=== PATIENT | female | born 1985 | race Caucasian/White ===

== ENCOUNTER 2024-03-26 02:41 | Emergency (ER) | payer BC ==
[2024-03-26] MEDS ORDERED: NA CHLORIDE 0.9% 1,000 ML ONE (03:45)
[2024-03-26 03:56] LABS: Absolute Eosinophils 0.1 K/uL (0-0.5); Absolute Lymphocytes (CBC) 1.6 K/uL (0.7-4.9); Absolute Monocytes 0.5 K/uL (0.1-1.3); Absolute Neutrophil 4.5 K/uL (1.8-8.0); Basophils % 0.6 % (0-1.3); Eosinophils % 1.6 % (0-4.4); Hematocrit 37.4 % (36.0-45.0); Hemoglobin 12.7 g/dL (12.0-15.0); Lymphocytes % 23.9 % (15.3-44.8); MCH 30.4 pg (27.0-35.0); MCHC 34.1 g/dL (32.0-36.0); MPV 9.2 fL (7.6-11.3); Monocytes % 7.5 % (3.3-12.3); Neutrophils % 66.4 % (41.7-73.7); Nucleated Red Blood Cells % 0.3 % (0-0); Platelets 221 thou/uL (152-406); RBC Red Blood Cell Count 4.19 M/uL (3.86-4.86); Red Cell Distribution Width 12.9 % (12.1-15.2)
[2024-03-26 04:31] LABS: ALT/SGPT 21 U/L (13-56); AST/SGOT 22 U/L (15-37); Albumin 3.2 g/dL (3.4-5.0); Albumin/Globulin Ratio 1.1 (1.1-1.8); Alkaline Phosphatase 37 U/L (45-117); Anion Gap 14.9 mEq/L (5.0-15.0); BUN Blood Urea Nitrogen 13 mg/dL (7-18); Bicarbonate 21 mEq/L (21-32); Bilirubin Total 0.6 mg/dL (0.2-1.0); Globulin 2.9 g/dL (2.3-3.5); Glomerular Filtration Rate 117 ml/min (=/>90); Glucose Level 90 mg/dL (74-106); Potassium 3.9 mEq/L (3.5-5.1); Protein, Total 6.1 g/dL (6.4-8.2); Sodium Level 140 mEq/L (136-145); Troponin High Sensitivity 3.5 pg/mL (<58.9)
[2024-03-26 04:38] LABS: Bilirubin Direct < 0.2 mg/dL (0-0.2); Bilirubin Indirect, Calculated 0.4 mg/dL (0.2-0.8)
--- NOTE | 2024-03-26 05:05 | RAD REPORT ---
EXAM DESCRIPTION: Head C Spine Mpr Wo Con CLINICAL HISTORY: TRAUMA COMPARISON: None available TECHNIQUE: Axial CT of the head obtained from the skull apex to the skull base without contrast. Axia l CT images of the cervical spine obtained without contrast. This exam was performed according to our departmental dose-optimization program, which includes automated exposure control, adjustment of the mA and/or kV according to patient size and/or use of iterative reconstruction technique. FINDINGS: Head CT: No acute intracranial hemorrhage identified. No mass, mass effect, shift of the midline, abnormal ext ra-axial fluid collection or CT evidence of acute ischemic change identified. The ventricular system is unremarkable. No acute abnormalities of the supratentorial white matter, basal ganglia, c erebellum, or brainstem. The visualized paranasal sinuses and the mastoids are relatively well aerated. No skull fracture id entified. Visualized orbits and globes are unremarkable. Cervical CT : Straightening of the cervical lordosis may be secondary to patient positioning. The atlantoaxial, a tlantodental, and occipitoatlantal intervals are preserved. No fracture identified. Vertebral body height preserved. Prevertebral soft tissues are unremarkable. Mild to moderate multilevel loss of intervertebral disc height with endplate spondylosis, facet arthr opathy, and uncovertebral spurring. Posterior disc osteophyte complex at multiple levels mildly encroach upon the anterior spinal canal. Mild neural foraminal narrowing. Visualized skull base is intact. Visualized mastoid air cells and paranasal sinuses are well aerat ed. Visualized thyroid is unremarkable. No cervical lymphadenopathy. No pneumothorax in the visualized lung apices. IMPRESSION: 1. No acute intracranial abnormality identified. 2. No acute fracture or subluxation of the cervical spine. 3. Multilevel degenerative change of the cervical spine. Electronically signed by: Kyree Harry DO 03/26/2024 04:27 AM [facility] [id number] Due to temporary technical issues with the PACS/[employer] reporting system, reports are being ti d by the in-house radiologist without review as a courtesy to ensure prompt reporting the interpreting radiologist is fully responsible for the content of the report. Transcribed Date/Time: 03/26/2024 5:05 AM
--- NOTE | 2024-03-26 05:18 | EDPHYS ---
Physician Documentation [facility] Name: Nell Pierre Age: 38 yrs Sex: Female : 1985 Arrival Date: 03/26/2024 Time: 02:41 Bed 6 Private MD: ED Physician Krishna Dey HPI: 03/26 04:41 This 38 yrs old Female presents to ER via Ambulatory with complaints of Fall Injury. rt 04:41 Patient presents to the ED following a syncopal event. The patient saw her rt passed out hitting his head, this reportedly incited his syncopal event without preceding symptoms. Patient does not remember. The patient did fall hitting her head. Patient reportedly had a second syncopal event that she also does not remember. Per report, loss of consciousness was only brief. Denies other acute complaints at this time, symptoms are moderate in severity, no other aggravating or alleviating factors.. 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 - Infectious Disease History:: Denies. - Social history:: Smoking status: Patient denies any tobacco usage or history of. ROS: 04:41 Constitutional: Negative for fever, chills, and weight loss, Cardiovascular: Negative rt for chest pain, palpitations, and edema, Respiratory: Negative for shortness of breath, cough, wheezing, and pleuritic chest pain, Abdomen/GI: Negative for abdominal pain, nausea, vomiting, diarrhea, and constipation, Skin: Negative for injury, rash, and discoloration, 04:41 Neuro: Positive for loss of consciousness, syncope, Exam: 04:41 Constitutional: This is a well developed, well nourished patient who is awake, alert, rt and in no acute distress. Chest/axilla: Normal chest wall appearance and motion. Nontender with no deformity. No lesions are appreciated. Cardiovascular: Regular rate and rhythm with a normal S1 and S2. No gallops, murmurs, or rubs. Normal PMI, no JVD. No pulse deficits. Respiratory: Lungs have equal breath sounds bilaterally, clear to auscultation and percussion. No rales, rhonchi or wheezes noted. No increased work of breathing, no retractions or nasal flaring. Abdomen/GI: Soft, non-tender, with normal bowel sounds. No distension or tympany. No guarding or rebound. No evidence of tenderness throughout. Skin: Warm, dry with normal turgor. Normal color with no rashes, no lesions, and no evidence of cellulitis. MS/ Extremity: Pulses equal, no cyanosis. Neurovascular intact. Full, normal range of motion. Neuro: Awake and alert, GCS 15, oriented to person, place, time, and situation. Cranial nerves II-XII grossly intact. Motor strength 5/5 in all extremities. Sensory grossly intact. Cerebellar exam normal. Normal gait. 04:41 Head/face: Small contusion to the left side of the face, no lacerations, other external signs of trauma. 04:41 ECG was reviewed by the Attending Physician. Vital Signs: 02:54 BP 112 / 83; Pulse 76; Resp 18 S; Temp 97.9(O); Pulse Ox 100% on R/A; Weight 88.45 kg; ha1 Height 5 ft. 2 in. ; 04:00 BP 106 / 93; Pulse 71; Resp 17 S; Pulse Ox 100% on R/A; ha1 05:00 BP 115 / 67; Pulse 76; Resp 17 S; Temp 98; Pulse Ox 100% on R/A; ha1 02:54 Body Mass Index 35.67 (88.45 kg, 157.48 cm) ha1 Connor Coma Score: 02:54 Eye Response: spontaneous(4). Motor Response: obeys commands(6). Verbal Response: ha1 oriented(5). Total: 15. Trauma Score (Adult): 02:54 Eye Response: spontaneous(1); Verbal Response: oriented(1); Motor Response: obeys ha1 commands(2); Systolic BP: > 89 mm Hg(4); Respiratory Rate: 10 to 29 per min(4); Connor Score: 15; Trauma Score: 12 MDM: 03:04 Medical Screening Exam initiated rt 05:21 Differential diagnosis: Vasovagal syncope, dysrhythmia, anemia, heart disturbance, ACS, rt adrenal hemorrhage, facial contusion. Data reviewed: vital signs, nurses notes, lab test result(s), EKG, radiologic studies. Consideration of Admission/Observation Escalation of care including admission/observation considered. Stable vital signs, benign workup, low risk for discharge, outpatient follow-up discussed. I considered the following discharge prescriptions or medication management in the emergency department Medications were administered in the Emergency Department. See MAR. Independent interpretation of the following test(s) in the Emergency Department CT Scan: My interpretation is No intracranial hemorrhage seen on interpretation of CT scan images. Counseling: I had a detailed discussion with the patient and/or guardian regarding the historical points, exam findings, and any diagnostic results supporting the discharge/admit diagnosis, lab results, radiology results, the need for outpatient follow up, Informed patient of incidental findings of degenerative changes in the spine. Response to treatment: the patient's symptoms have markedly improved after treatment. 03/26 03:18 Order name: Basic Metabolic Panel; Complete Time: 04:41 rt 03/26 03:18 Order name: CBC with Diff; Complete Time: 04:41 rt 03/26 03:18 Order name: LFT's; Complete Time: 04:41 rt 03/26 03:18 Order name: Troponin HS; Complete Time: 04:41 rt 03/26 03:18 Order name: CT Head C Spine rt 03/26 03:18 Order name: Cardiac monitoring; Complete Time: 03:47 rt 03/26 03:18 Order name: EKG - Nurse/Tech; Complete Time: 03:25 rt 03/26 03:18 Order name: IV Saline Lock; Complete Time: 03:47 rt 03/26 03:18 Order name: Labs collected and sent; Complete Time: 03:47 rt 03/26 03:18 Order name: O2 Per Protocol; Complete Time: 03:47 rt 03/26 03:18 Order name: O2 Sat Monitoring; Complete Time: 03:47 rt EC:41 Rate is 70 beats/min. Rhythm is regular, Normal Sinus Rhythm with No ectopy. QRS [place] rt is Normal. AL interval is normal. QRS interval is normal. QT interval is normal. No Q waves. T waves are Normal. No ST changes noted. Interpreted by me. Administered Medications: 04:04 Drug: NS 0.9% IV 1000 ml IV at 1 bolus Per protocol; to be given as a bolus over 60 ha1 minutes Route: IV; Rate: 1 bolus; Site: right wrist; 05:25 Follow up: Response: No adverse reaction; IV Status: Completed infusion; IV Intake: ha1 1000ml Disposition Summary: 03/26/24 05:18 Discharge Ordered Notes: Location: Home rt Problem: new rt Symptoms: have improved rt Condition: Stable rt Diagnosis - syncope rt - contusion of face rt Followup: rt - With: Private Physician - When: 2 - 3 days - Reason: Discharge Instructions: - Discharge Summary Sheet rt - Facial or Scalp Contusion rt - Syncope rt Forms: - Medication Reconciliation Form rt - Antibiotic Education rt - Prescription Opioid Use rt - Patient Portal Instructions rt - Leadership Thank You Letter rt Signatures: Dispatcher [employer] Zoie Biggs RN RN ha1 Krishna Dey MD MD rt Corrections: (The following items were deleted from the chart) 03:19 03:19 Head C Spine MPR Wo Con+CT.RAD.BRZ ordered. EDIN EDMS
--- NOTE | 2024-03-26 05:18 | ER ---
Nurse's Notes [facility] Name: Nell Pierre Age: 38 yrs Sex: Female : 1985 Arrival Date: 03/26/2024 Time: 02:41 Bed 6 Private MD: Diagnosis: syncope;contusion of face Presentation: 03/26 02:54 Chief complaint: Patient states: I fainted and fell after seeing my on the ha1 floor bleeding. 02:54 Coronavirus screen: Client denies travel out of the [place] in the last 14 days. Ebola ha1 Screen: No symptoms or risks identified at this time. Initial Sepsis Screen: Does the patient meet any 2 criteria? No. Patient's initial sepsis screen is negative. Does the patient have a suspected source of infection? No. Patient's initial sepsis screen is negative. Risk Assessment: Do you want to hurt yourself or someone else? Patient reports no desire to harm self or others. Onset of symptoms was March 26, 2024. 02:54 Method Of Arrival: Ambulatory ha1 02:54 Acuity: KARINE 3 ha1 Triage Assessment: 03:13 General: Appears comfortable, Behavior is calm, cooperative. Neuro: Level of ha1 Consciousness is awake, alert, obeys commands, Oriented to person, place, time, situation. Cardiovascular: Capillary refill < 3 seconds Patient's skin is warm and dry. Respiratory: Airway is patent Respiratory effort is even, unlabored, Respiratory pattern is regular, symmetrical. GI: Abdomen is round non-distended. : No signs and/or symptoms were reported regarding the genitourinary system. Derm: Skin is pink, warm \T\ dry. Musculoskeletal: Circulation, motion, and sensation intact. Range of motion: intact in all extremities. 03:13 Pain: Complains of pain in headache Pain does not radiate. Pain currently is 3 out of ha1 10 on a pain scale. Quality of pain is described as aching. 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 - Infectious Disease History:: Denies. - Social history:: Smoking status: Patient denies any tobacco usage or history of. Screenin:15 Abuse screen: Denies threats or abuse. Denies injuries from another. Tuberculosis ha1 screening: No symptoms or risk factors identified. 03:16 [facility] ED Fall Risk Assessment (Adult) History of falling in the last 3 months, ha1 including since admission Yes- single mechanical fall (1 pt) Confusion or Disorientation No (0 pts) Intoxicated or Sedated No (0 pts) Impaired Gait No (0 pts) Mobility Assist Device Used No (0 pt) Altered Elimination No (0 pt) Score/Fall Risk Level 0 - 2 = Low Risk Oriented to surroundings, Maintained a safe environment, Educated pt \T\ family on fall prevention, incl call for assistance when getting out of bed, Hourly rounding (assess needs \T\ fall precautionary measures) done. Nutritional screening: No deficits noted. Assessment: 03:00 Reassessment: see triage assessment. ha1 04:00 Reassessment: Patient and/or family updated on plan of care and expected duration. Pain ha1 level reassessed. Patient is alert, oriented x 3, equal unlabored respirations, skin warm/dry/pink. Patient states feeling better. Patient states symptoms have improved. 05:00 Reassessment: Patient and/or family updated on plan of care and expected duration. Pain ha1 level reassessed. Patient is alert, oriented x 3, equal unlabored respirations, skin warm/dry/pink. Patient states feeling better. Patient states symptoms have improved. Vital Signs: 02:54 BP 112 / 83; Pulse 76; Resp 18 S; Temp 97.9(O); Pulse Ox 100% on R/A; Weight 88.45 kg; ha1 Height 5 ft. 2 in. ; 04:00 BP 106 / 93; Pulse 71; Resp 17 S; Pulse Ox 100% on R/A; ha1 05:00 BP 115 / 67; Pulse 76; Resp 17 S; Temp 98; Pulse Ox 100% on R/A; ha1 02:54 Body Mass Index 35.67 (88.45 kg, 157.48 cm) ha1 Connor Coma Score: 02:54 Eye Response: spontaneous(4). Motor Response: obeys commands(6). Verbal Response: ha1 oriented(5). Total: 15. Trauma Score (Adult): 02:54 Eye Response: spontaneous(1); Verbal Response: oriented(1); Motor Response: obeys ha1 commands(2); Systolic BP: > 89 mm Hg(4); Respiratory Rate: 10 to 29 per min(4); Connor Score: 15; Trauma Score: 12 ED Course: 02:51 Patient arrived in ED. gm2 02:51 Krishna Dey MD is Attending Physician. rt 02:54 Patient has correct armband on for positive identification. Placed in gown. Bed in low ha1 position. Call light in reach. Side rails up X 1. Adult w/ patient. 02:54 Patient maintains SpO2 saturation greater than 95% on room air. ha1 03:10 Inserted saline lock: 22 gauge in right wrist, using aseptic technique. Blood ha1 collected. Flushed with 10 mL NS. 03:13 Triage completed. ha1 03:17 Arm band placed on right wrist. ha1 03:25 EKG done, by ED staff. hw 03:46 Zoie Jacques RN is Primary Nurse. ha1 03:47 Basic Metabolic Panel Sent. ha1 03:47 CBC with Diff Sent. ha1 03:47 LFT's Sent. ha1 03:47 Troponin HS Sent. ha1 03:49 CT Head C Spine In Process Unspecified. EDMS 05:22 No provider procedures requiring assistance completed. ha1 05:23 IV discontinued, intact, bleeding controlled, No redness/swelling at site. Pressure ha1 dressing applied. 05:24 Provided Education on: follow ups . ha1 Administered Medications: 04:04 Drug: NS 0.9% IV 1000 ml IV at 1 bolus Per protocol; to be given as a bolus over 60 ha1 minutes Route: IV; Rate: 1 bolus; Site: right wrist; 05:25 Follow up: Response: No adverse reaction; IV Status: Completed infusion; IV Intake: ha1 1000ml Medication: 03:17 VIS not applicable for this client. ha1 Intake: 05:25 IV: 1000ml; Total: 1000ml. ha1 Outcome: 05:18 Discharge ordered by . rt 05:23 Discharged to home ambulatory, with family, ha1 05:23 Condition: stable 05:23 Discharge instructions given to patient, family, Instructed on discharge instructions, follow up and referral plans. Demonstrated understanding of instructions, follow-up care, 05:25 Patient left the ED. ha1 Signatures: Dispatcher [employer] EDAK Zoie Jacques, CAPRICE RN annabel1 Krishna Dey MD MD rt Poppy Jones gm2 Ines Barajas
[2024-03-26 05:33] VITALS: O2SAT 100
[2024-03-26 05:35] VITALS: BP 115/67; TEMP 98
== END 2024-03-26 05:25 | disposition home or self-care (01) ==
LOC: ER 02:41
DX: S00.83XA Contusion of other part of head, initial encounter (principal); W19.XXXA Unspecified fall, initial encounter; R55 Syncope and collapse
CPT/HCPCS: 85025; 80048; 36415; 80076; 84484; 70450; 72125; 96360; 99284; J7030